=== PATIENT | male | born 1955 | race African-American/Black ===

== ENCOUNTER 2017-03-25 09:14 | Inpatient (IN) | payer OTHER ==
[2017-03-25 10:45] VITALS: BMI 25.7
--- NOTE | 2017-03-25 13:27 | HP ---
CIWA Score - CIWA Score Nausea/Vomitin Muscle Tremors: 4-Moderate,w/Arms Extend Anxiety: 3 Agitation: 4-Moderately Restless Paroxysmal Sweats: 3 Orientation: 0-Oriented Tacttile Disturbances: 0-None Auditory Disturbances: 0-None Visual Disturbances: 0-None Headache: 2-Mild CIWA-Ar Total Score: 18 Admission ROS BHS - HPI Chief Complaint: I am here to detox Allergies/Adverse Reactions: Allergies Allergy/AdvReac Type Severity Reaction Status Date / Time lactose Allergy Severe Verified 03/25/17 11:55 History of Present Illness: pt is a 61yr old male with a history of alcohol and cocaine dependence seeking detox for treatment. Exam Limitations: No Limitations - Ebola screening Have you traveled outside of the country in the last 21 days: No Have you had contact with anyone from an Ebola affected area: No Have you been sick,other than usual withdrawal symptoms: No Do you have a fever: No - Review of Systems Constitutional: Chills, Diaphoresis, Loss of Appetite, Malaise, Night Sweats, Changes in sleep EENT: reports: Tearing, Nose Congestion Respiratory: reports: No Symptoms reported Cardiac: reports: Syncope GI: reports: Diarrhea, Nausea, Poor Appetite, Poor Fluid Intake, Vomiting : reports: No Symptoms Reported Musculoskeletal: reports: Back Pain, Joint Pain, Muscle Pain Integumentary: reports: Flushing, Sweating Neuro: reports: Headache, Tingling, Tremors Endocrine: reports: Excessive Sweating, Flushing, Intolerance to Heat Hematology: reports: No Symptoms Reported Psychiatric: reports: Judgement Intact, Mood/Affect Appropiate, Orientated x3, Agitated, Anxious Other Systems: Reviewed and Negative Patient History - Patient Medical History Hx Anemia: Yes (NOT CURRENTLY ON MED) Hx Asthma: No Hx Chronic Obstructive Pulmonary Disease (COPD): No Hx Cancer: No Hx Cardiac Disorders: No Hx Congestive Heart Failure: No Hx Hypertension: No Hx Hypercholesterolemia: No Hx Pacemaker: No HX Cerebrovascular Accident: No Hx Seizures: No Hx Diabetes: No Hx Gastrointestinal Disorders: No Hx Liver Disease: No Hx Genitourinary Disorders: Yes (Pt states he has a R kidney cyst.) Hx Sexually Transmitted Disorders: No Hx Renal Disease (ESRD): No Hx Thyroid Disease: No Hx Human Immunodeficiency Virus (HIV): No (NEGATIVE HX) Hx Hepatitis C: No (negative) Hx Depression: Yes Hx Suicide Attempt: No (denies) Hx Bipolar Disorder: Yes Hx Schizophrenia: No - Patient Surgical History Past Surgical History: Yes Hx Neurologic Surgery: No Hx Cataract Extraction: No Hx Cardiac Surgery: No Hx Lung Surgery: Yes (CHEST TUBES DUE TO RIB FX/COLLAPSED LUNG IN 2010) Hx Breast Surgery: No Hx Breast Biopsy: No Hx Abdominal Surgery: No Hx Appendectomy: No Hx Cholecystectomy: No Hx Genitourinary Surgery: No Hx Section: No Hx Orthopedic Surgery: No Anesthesia Reaction: No - PPD History Previous Implant?: Yes Documented Results: Negative w/proof Implanted On Prior [facility] Admission?: Yes Date: 07/01/16 Results: 0 mm PPD to be Administered?: No - Reproductive History Patient is a Female of Child Bearing Age (11 -55 yrs old): No - Smoking Cessation Smoking history: Current every day smoker Have you smoked in the past 12 months: Yes Aproximately how many cigarettes per day: 10 Hx Chewing Tobacco Use: No Initiated information on smoking cessation: Yes 'Breaking Loose' booklet given: 03/25/17 - Substance & Tx. History Hx Alcohol Use: Yes Hx Substance Use: Yes Substance Use Type: Alcohol, Cocaine, Marijuana Hx Substance Use Treatment: Yes - Substances Abused Alcohol Route: Oral Frequency: Daily Amount used: 6PK BEER/ 1 PINT VODKA Age of first use: 17 Date of Last Use: 03/25/17 Cocaine Route: Inhalation Frequency: 1-2 times per week Amount used: $20 Age of first use: 18 Date of Last Use: 03/24/17 Marijuana/Hashish Route: Smoking Frequency: 3-6 times per week Amount used: $5 Age of first use: 17 Date of Last Use: 03/24/17 Family Disease History - Family Disease History Family Disease History: Heart Disease: Brother ([place] & ADDICTION-), [place]: Father (PROSTATE [place]-), Other: Grandparent (BLIND-), Mother (HTN- ALIVE AND 96 Y/O) Admission Physical Exam S - Vital Signs Vital Signs: Vital Signs - 24 hr 03/25/17 10:43 Temperature 97 F L Pulse Rate 97 H Respiratory 20 Rate Blood Pressure 133/77 - Physical General Appearance: Yes: Appropriately Dressed, Moderate Distress, Tremorous, Irritable, Sweating, Anxious HEENTM: Yes: Normal Voice, Nasal Congestion, Rhinorrhea Respiratory: Yes: Lungs Clear, Normal Breath Sounds, No Respiratory Distress Neck: Yes: No masses,lesions,Nodules Breast: Yes: Within Normal Limits Cardiology: Yes: Regular Rhythm, Regular Rate, S1, S2 Abdominal: Yes: Normal Bowel Sounds, Non Tender, Soft Genitourinary: Yes: Within Normal Limits Back: Yes: Normal Inspection Musculoskeletal: Yes: Back pain, Joint Stiffness Extremities: Yes: Normal Capillary Refill, Tremors Neurological: Yes: Fully Oriented, Alert, Normal Mood/Affect, Normal Response Integumentary: Yes: Normal Color, Diaphoresis Lymphatic: Yes: Within Normal Limits - Diagnostic (1) Alcohol dependence with uncomplicated withdrawal Current Visit: Yes Status: Chronic (2) Cannabis dependence Current Visit: Yes Status: Chronic (3) History of anemia Current Visit: Yes Status: Suspected Cleared for Admission [facility] - Detox or Rehab [facility] Level of Care: Medically Managed Detox Regimen/Protocol: Librium [facility] Breath Alcohol Content Breath Alcohol Content: 0.008 Urine Drug Screen - Results Drug Screen Negative: No Urine Drug Screen Results: THC-Marijuana, PRICILLA-Cocaine
[2017-03-25] MEDS ORDERED: hydrOXYzine PAMOATE 50 MG CAPSULE (FP) PO PRN (13:35)
[2017-03-25] MEDS ORDERED: MAGNESIUM CITRATE 300 ML BOTTLE PO PRN (13:35)
[2017-03-25] MEDS ORDERED: diphenhydrAMINE HCL 50 MG CAPSULE PO PRN (13:35)
[2017-03-25] MEDS ORDERED: MAG HYDROX/AL HYDROX/SIMETH 30 ML UNIT-DOSE CUP PO PRN (13:35)
[2017-03-25] MEDS ORDERED: P-EPHED 60MG/TRIPROLIDI 2.5MG TABLET PO PRN (13:35)
[2017-03-25] MEDS ORDERED: chlordiazePOXIDE HCL 25 MG CAPSULE PO PRN (13:35)
[2017-03-25] MEDS ORDERED: MAGNESIUM HYDROX 2400MG/30ML ORAL SUSPENSION 30 ML CUP PO PRN (13:35)
[2017-03-25] MEDS ORDERED: IBUPROFEN 400 MG TABLET (FP) PO PRN (13:35)
[2017-03-25] MEDS ORDERED: MENTHOL/PHENOL 1 EACH UD MM PRN (13:35)
[2017-03-25] MEDS ORDERED: LOPERAMIDE HCL 2 MG CAPSULE PO PRN (13:35)
[2017-03-25] MEDS ORDERED: ACETAMINOPHEN 325 MG TABLET (FP) PO PRN (13:35)
[2017-03-25] MEDS ORDERED: guaiFENesin/D-METHORPHAN HB 10 ML UNIT-DOSE CUPS PO PRN (13:35)
[2017-03-25] MEDS ORDERED: chlordiazePOXIDE HCL 25 MG CAPSULE PO ONE (13:51)
[2017-03-25 15:18] LABS: HIV 1 & 2 AB NEGATIVE; HIV 1 AGp24 NEGATIVE
--- NOTE | 2017-03-25 15:22 | CONSULT ---
[facility] Psychiatric Consult - Data Date of interview: 03/25/17 Admission source: [facility] Identifying data: Schizophrenia, history of psuychiatrtic hospitalizations intoxicated with: This is 61 years old male with : Alcohol, Cannabis, Cocaine and Nicotine Substance Abuse History: Smoking history: Current every day smoker. Have you smoked in the past 12 months: Yes. Aproximately how many cigarettes per day: 10. Hx Chewing Tobacco Use: No. Initiated information on smoking cessation: Yes. 'Breaking Loose' booklet given: 03/25/17. - Substance & Tx. History. Hx Alcohol Use: Yes. Hx Substance Use: Yes. Substance Use Type: Alcohol, Cocaine , Marijuana. Hx Substance Use Treatment: Yes. - Substances Abused. Alcohol. Route: Oral. Frequency: Daily. Amount used: 6PK BEER/ 1 PINT VODKA. Age of first use: 17. Date of Last Use: 03/25/17. Cocaine. Route: Inhalation. Frequency: 1-2 times per week. Amount used: $20. Age of first use : 18. Date of Last Use: 03/24/17. Marijuana/Hashish. Route: Smoking. Frequency: 3-6 times per week. Amount used: $5. Age of first use: 17. Date of Last Use: 03/24/17 Medical History: Anemia history, Right forearm fracture history, GERD Psychiatric History: Ashley reports history of Paranoid Schizophrenia, reports most recent psychitric admission on long time ago, reports taking prior to admission:'. Abilify 15mg poqd. Vistaril 50mg po bid. Robaxin 500mg po tid Physical/Sexual Abuse/Trauma History: Denies Additional Comment: Abilify 15mg poqd. Vistaril 50mg po bid. Robaxin 500mg po tid Mental Status Exam - Mental Status Exam Alert and Oriented to: Person Cognitive Function: Fair Patient Appearance: Unkempt, Disheveled Mood: Anxious Affect: Flat Patient Behavior: Fatigued, Guarded Speech Pattern: Slurred Voice Loudness: Mildly Soft/Quiet Thought Process: Circumstantial Thought Disorder: Being Controlled Hallucinations: Denies Suicidal Ideation: Denies Homicidal Ideation: Denies Insight/Judgement: Fair Sleep: Difficulty falling asleep Appetite: Fair Muscle strength/Tone: Mild Hypotonicity Gait/Station: Shuffling Additional Comments: Abilify 15mg poqd. Vistaril 50mg po bid. Robaxin 500mg po tid Psychiatric Findings - Problem List ([place] 1, 2,3) (1) Alcohol dependence with uncomplicated withdrawal Current Visit: Yes Status: Chronic (2) Cannabis dependence Current Visit: Yes Status: Chronic (3) Substance induced mood disorder Current Visit: No Status: Acute (4) Substance or medication-induced sleep disorder, insomnia type Current Visit: No Status: Acute (5) Schizophrenia Current Visit: No Status: Suspected (6) Cocaine abuse Current Visit: Yes Status: Acute (7) Nicotine dependence Current Visit: Yes Status: Acute - Initial Treatment Plan Initial Treatment Plan: Abilify 15mg poqd. Vistaril 50mg po bid. Robaxin 500mg po tid
[2017-03-25] MEDS: ARIPiprazole 15 MG TABLET PO SCH (15:37)
[2017-03-25] MEDS: METHOCARBAMOL 500 MG TABLET PO SCH ×2 (15:37→22:27)
--- NOTE | 2017-03-25 16:47 | EKG ---
Test Reason : Blood Pressure : / mmHG Vent. Rate : 073 BPM Atrial Rate : 073 BPM P-R Int : 124 ms QRS Dur : 066 ms QT Int : 366 ms P-R-T Axes : 080 072 036 degrees QTc Int : 403 ms NORMAL SINUS RHYTHM NORMAL ECG NO PREVIOUS ECGS AVAILABLE Confirmed by MARI COTTRELL MD ([id number]) on 03/25/2017 4:46:54 PM Referred By: Confirmed By:MARI COTTRELL MD
[2017-03-25] MEDS: chlordiazePOXIDE HCL 25 MG CAPSULE PO SCH ×2 (17:09→22:27)
[2017-03-25 17:45] LABS: URINE APPEARANCE CLEAR; URINE BILIRUBIN NEGATIVE (NEGATIVE); URINE BLOOD NEGATIVE (NEGATIVE); URINE COLOR LTYELLOW; URINE GLUCOSE (UA) NEGATIVE (NEGATIVE); URINE KETONE NEGATIVE (NEGATIVE); URINE LEUK ESTERASE NEGATIVE (NEGATIVE); URINE NITRITE NEGATIVE (NEGATIVE); URINE PROTEIN NEGATIVE (NEGATIVE); URINE UROBILINOGEN NEGATIVE E.U./dl (0.2-1.0)
[2017-03-25] MEDS: hydrOXYzine PAMOATE 50 MG CAPSULE (FP) PO SCH (22:27)
[2017-03-25] MEDS: THIAMINE HCL 100 MG TABLET (FP) PO SCH (22:27)
[2017-03-26] MEDS: chlordiazePOXIDE HCL 25 MG CAPSULE PO SCH ×4 (06:10→22:26)
[2017-03-26] MEDS: METHOCARBAMOL 500 MG TABLET PO SCH ×4 (07:43→22:26)
[2017-03-26 10:00] LABS: MCH 29.9 pg (25.7-33.7); MCHC 31.6 g/dl (32.0-35.9); MEAN CELL VOLUME 94.4 fl (80-96); PLATELET COUNT 134 K/MM3 (134-434); WHITE BLOOD COUNT 6.7 K/mm3 (4.0-10.0)
[2017-03-26] MEDS: PRENATAL VITAMINS W/ FOLIC ACID TABLET (FP) PO SCH (10:15)
[2017-03-26] MEDS: ARIPiprazole 15 MG TABLET PO SCH (10:15)
[2017-03-26] MEDS: NICOTINE 21 MG/24 HOURS TOPICAL PATCH TD SCH (10:15)
[2017-03-26] MEDS: hydrOXYzine PAMOATE 50 MG CAPSULE (FP) PO SCH ×2 (10:15→22:26)
[2017-03-26] MEDS: NICOTINE POLACRILEX 4 MG GUM BUC PRN (10:16)
[2017-03-26 10:35] LABS: ALBUMIN 3.8 g/dl (3.4-5.0); ALK PHOS 87 U/L (45-117); ANION GAP 8 (8-16); BILIRUBIN,TOTAL 0.6 mg/dL (0.2-1.0); CALCIUM 8.3 mg/dL (8.5-10.1); CO2 26 mmol/L (21-32); COCKROFT - GAULT 85.04; CREATININE 0.9 mg/dL (0.7-1.3); GLUCOSE,RANDOM 95 mg/dL (74-106); SGOT/AST 38 U/L (15-37); SGPT/ALT 44 U/L (12-78); TOT PROT 6.6 g/dl (6.4-8.2)
--- NOTE | 2017-03-26 13:18 | PN ---
S CIWA - CIWA Score Nausea/Vomitin Muscle Tremors: 3 Anxiety: 2 Agitation: 2 Paroxysmal Sweats: 3 Orientation: 1-Uncertain about Date Tacttile Disturbances: 2-Mild Itch/Numbness/Burn Auditory Disturbances: 2-Mild Harshness/Frighten Visual Disturbances: 2-Mild Sensitivity Headache: 0-None Present CIWA-Ar Total Score: 20 S Progress Note (SOAP) Subjective: Nausea, Body Aches, Interrupted Sleep,Fatigue, Tremors. Objective: PT. A & O X 2 (DISORIENTED ABOUT DAY/ DATE). PT. DENIES CHEST PAIN. 03/26/17 13:19 Vital Signs Temperature 98.1 F 03/26/17 10:06 Pulse Rate 86 03/26/17 10:06 Respiratory Rate 20 03/26/17 10:06 Blood Pressure 108/70 03/26/17 10:06 O2 Sat by Pulse Oximetry (%) Laboratory Last Values WBC 6.7 K/mm3 (4.0-10.0) D 03/26/17 06:00 RBC 4.32 M/mm3 (4.00-5.60) 03/26/17 06:00 Hgb 12.9 GM/dL (11.7-16.9) 03/26/17 06:00 Hct 40.8 % (35.4-49) 03/26/17 06:00 MCV 94.4 fl (80-96) 03/26/17 06:00 MCHC 31.6 g/dl (32.0-35.9) L 03/26/17 06:00 RDW 14.0 % (11.9-15.9) 03/26/17 06:00 Plt Count 134 K/MM3 (134-434) 03/26/17 06:00 MPV 9.0 fl (7.5-11.1) 03/26/17 06:00 Sodium 144 mmol/L (136-145) 03/26/17 06:00 Potassium 4.1 mmol/L (3.5-5.1) 03/26/17 06:00 Chloride 110 mmol/L (98-107) H D 03/26/17 06:00 Carbon Dioxide 26 mmol/L (21-32) 03/26/17 06:00 Anion Gap 8 (8-16) 03/26/17 06:00 BUN 6 mg/dL (7-18) L 03/26/17 06:00 Creatinine 0.9 mg/dL (0.7-1.3) 03/26/17 06:00 Creat Clearance w eGFR > 60 (>60) 03/26/17 06:00 Random Glucose 95 mg/dL (74-106) D 03/26/17 06:00 Calcium 8.3 mg/dL (8.5-10.1) L 03/26/17 06:00 Total Bilirubin 0.6 mg/dL (0.2-1.0) D 03/26/17 06:00 AST 38 U/L (15-37) H D 03/26/17 06:00 ALT 44 U/L (12-78) D 03/26/17 06:00 Alkaline Phosphatase 87 U/L (45-117) 03/26/17 06:00 Total Protein 6.6 g/dl (6.4-8.2) 03/26/17 06:00 Albumin 3.8 g/dl (3.4-5.0) 03/26/17 06:00 Urine Color Ltyellow 03/25/17 13:00 Urine Appearance Clear 03/25/17 13:00 Urine pH 5.0 (5.0-8.0) 03/25/17 13:00 Ur Specific [place] 1.015 (1.005-1.025) 03/25/17 13:00 Urine Protein Negative (NEGATIVE) 03/25/17 13:00 Urine Glucose (UA) Negative (NEGATIVE) 03/25/17 13:00 Urine Ketones Negative (NEGATIVE) 03/25/17 13:00 Urine Blood Negative (NEGATIVE) 03/25/17 13:00 Urine Nitrite Negative (NEGATIVE) 03/25/17 13:00 Urine Bilirubin Negative (NEGATIVE) 03/25/17 13:00 Urine Urobilinogen Negative E.U./dl (0.2-1.0) 03/25/17 13:00 Ur Leukocyte Esterase Negative (NEGATIVE) 03/25/17 13:00 RPR Titer Nonreactive (NONREACTIVE) 03/26/17 06:00 HIV 1&2 Antibody Screen Negative 03/25/17 12:05 HIV P24 Antigen Negative 03/25/17 12:05 LABS NOTED. Assessment: 03/26/17 13:20 WITHDRAWAL SYMPTOMS. Plan: CONTINUE DETOX. PATIENT ADVISED TO FOLLOW-UP WITH CATERING SERVICE MANAGER AFTER DISCHARGE FROM DETOX FOR GENERAL MEDICAL ASSESSMENT AND FOR ABNORMAL ADMISSION LAB VALUES.
[2017-03-26] MEDS: THIAMINE HCL 100 MG TABLET (FP) PO SCH (22:26)
[2017-03-27] MEDS: chlordiazePOXIDE HCL 25 MG CAPSULE PO SCH ×2 (05:24→10:26)
[2017-03-27] MEDS: ARIPiprazole 15 MG TABLET PO SCH (10:26)
[2017-03-27] MEDS: METHOCARBAMOL 500 MG TABLET PO SCH ×3 (10:27→22:07)
[2017-03-27] MEDS: PRENATAL VITAMINS W/ FOLIC ACID TABLET (FP) PO SCH (10:27)
[2017-03-27] MEDS: hydrOXYzine PAMOATE 50 MG CAPSULE (FP) PO SCH ×2 (10:27→22:07)
[2017-03-27] MEDS: NICOTINE 21 MG/24 HOURS TOPICAL PATCH TD SCH (10:28)
--- NOTE | 2017-03-27 15:04 | PN ---
[facility] CIWA - CIWA Score Nausea/Vomitin-Mild Nausea/No Vomiting Muscle Tremors: 4-Moderate,w/Arms Extend Anxiety: 3 Agitation: 2 Paroxysmal Sweats: 1-Minimal Palms Moist Orientation: 1-Uncertain about Date Tacttile Disturbances: 0-None Auditory Disturbances: 0-None Visual Disturbances: 3-Moderate Sensitivity Headache: 0-None Present CIWA-Ar Total Score: 15 [facility] Progress Note (SOAP) Subjective: Back Ache, Diarrhea, Tremors. Objective: PT. A & O X 2 (DISORIENTED ABOUT DAY/DATE). PT. OBSERVED AMBULATING ON UNIT. 03/27/17 15:03 Vital Signs Temperature 96.9 F L 03/27/17 13:07 Pulse Rate 80 03/27/17 13:07 Respiratory Rate 20 03/27/17 13:07 Blood Pressure 128/84 03/27/17 13:07 O2 Sat by Pulse Oximetry (%) Laboratory Last Values WBC 6.7 K/mm3 (4.0-10.0) D 03/26/17 06:00 RBC 4.32 M/mm3 (4.00-5.60) 03/26/17 06:00 Hgb 12.9 GM/dL (11.7-16.9) 03/26/17 06:00 Hct 40.8 % (35.4-49) 03/26/17 06:00 MCV 94.4 fl (80-96) 03/26/17 06:00 MCHC 31.6 g/dl (32.0-35.9) L 03/26/17 06:00 RDW 14.0 % (11.9-15.9) 03/26/17 06:00 Plt Count 134 K/MM3 (134-434) 03/26/17 06:00 MPV 9.0 fl (7.5-11.1) 03/26/17 06:00 Sodium 144 mmol/L (136-145) 03/26/17 06:00 Potassium 4.1 mmol/L (3.5-5.1) 03/26/17 06:00 Chloride 110 mmol/L (98-107) H D 03/26/17 06:00 Carbon Dioxide 26 mmol/L (21-32) 03/26/17 06:00 Anion Gap 8 (8-16) 03/26/17 06:00 BUN 6 mg/dL (7-18) L 03/26/17 06:00 Creatinine 0.9 mg/dL (0.7-1.3) 03/26/17 06:00 Creat Clearance w eGFR > 60 (>60) 03/26/17 06:00 Random Glucose 95 mg/dL (74-106) D 03/26/17 06:00 Calcium 8.3 mg/dL (8.5-10.1) L 03/26/17 06:00 Total Bilirubin 0.6 mg/dL (0.2-1.0) D 03/26/17 06:00 AST 38 U/L (15-37) H D 03/26/17 06:00 ALT 44 U/L (12-78) D 03/26/17 06:00 Alkaline Phosphatase 87 U/L (45-117) 03/26/17 06:00 Total Protein 6.6 g/dl (6.4-8.2) 03/26/17 06:00 Albumin 3.8 g/dl (3.4-5.0) 03/26/17 06:00 Urine Color Ltyellow 03/25/17 13:00 Urine Appearance Clear 03/25/17 13:00 Urine pH 5.0 (5.0-8.0) 03/25/17 13:00 Ur Specific [place] 1.015 (1.005-1.025) 03/25/17 13:00 Urine Protein Negative (NEGATIVE) 03/25/17 13:00 Urine Glucose (UA) Negative (NEGATIVE) 03/25/17 13:00 Urine Ketones Negative (NEGATIVE) 03/25/17 13:00 Urine Blood Negative (NEGATIVE) 03/25/17 13:00 Urine Nitrite Negative (NEGATIVE) 03/25/17 13:00 Urine Bilirubin Negative (NEGATIVE) 03/25/17 13:00 Urine Urobilinogen Negative E.U./dl (0.2-1.0) 03/25/17 13:00 Ur Leukocyte Esterase Negative (NEGATIVE) 03/25/17 13:00 RPR Titer Nonreactive (NONREACTIVE) 03/26/17 06:00 HIV 1&2 Antibody Screen Negative 03/25/17 12:05 HIV P24 Antigen Negative 03/25/17 12:05 LABS NOTED. Assessment: 03/27/17 15:04 WITHDRAWAL SYMPTOMS. Plan: CONTINUE DETOX. PRN IMMODIUM FOR DIARRHEA. ADVISED PATIENT TO FOLLOW-UP WITH STAB SETTER AND DRILLER AFTER DISCHARGE FROM DETOX FOR GENERAL MEDICAL ASSESSMENT AND FOR ABNORMAL ADMISSION LAB VALUES.
[2017-03-27] MEDS: chlordiazePOXIDE 5 MG CAPSULE PO SCH ×2 (17:13→22:07)
[2017-03-27] MEDS: THIAMINE HCL 100 MG TABLET (FP) PO SCH (22:07)
[2017-03-27] MEDS: NICOTINE POLACRILEX 4 MG GUM BUC PRN (22:09)
[2017-03-28] MEDS: chlordiazePOXIDE 5 MG CAPSULE PO SCH ×2 (06:39→10:11)
[2017-03-28] MEDS: METHOCARBAMOL 500 MG TABLET PO SCH ×3 (07:14→22:15)
[2017-03-28] MEDS: PRENATAL VITAMINS W/ FOLIC ACID TABLET (FP) PO SCH (10:11)
[2017-03-28] MEDS: hydrOXYzine PAMOATE 50 MG CAPSULE (FP) PO SCH ×2 (10:11→22:15)
[2017-03-28] MEDS: ARIPiprazole 15 MG TABLET PO SCH (10:11)
[2017-03-28] MEDS: NICOTINE 21 MG/24 HOURS TOPICAL PATCH TD SCH (10:12)
--- NOTE | 2017-03-28 16:39 | PN ---
S Progress Note (SOAP) Subjective: Tremors, Diarrhea, Fatigue, Back Ache. Objective: PT. A & O X 2 (DISORIENTED ABOUT DAY / DATE). PT. OBSERVED AMBULATING ON UNIT. 03/28/17 16:37 Vital Signs Temperature 96.5 F L 03/28/17 13:19 Pulse Rate 84 03/28/17 13:19 Respiratory Rate 20 03/28/17 13:19 Blood Pressure 131/88 03/28/17 13:19 O2 Sat by Pulse Oximetry (%) Laboratory Last Values WBC 6.7 K/mm3 (4.0-10.0) D 03/26/17 06:00 RBC 4.32 M/mm3 (4.00-5.60) 03/26/17 06:00 Hgb 12.9 GM/dL (11.7-16.9) 03/26/17 06:00 Hct 40.8 % (35.4-49) 03/26/17 06:00 MCV 94.4 fl (80-96) 03/26/17 06:00 MCHC 31.6 g/dl (32.0-35.9) L 03/26/17 06:00 RDW 14.0 % (11.9-15.9) 03/26/17 06:00 Plt Count 134 K/MM3 (134-434) 03/26/17 06:00 MPV 9.0 fl (7.5-11.1) 03/26/17 06:00 Sodium 144 mmol/L (136-145) 03/26/17 06:00 Potassium 4.1 mmol/L (3.5-5.1) 03/26/17 06:00 Chloride 110 mmol/L (98-107) H D 03/26/17 06:00 Carbon Dioxide 26 mmol/L (21-32) 03/26/17 06:00 Anion Gap 8 (8-16) 03/26/17 06:00 BUN 6 mg/dL (7-18) L 03/26/17 06:00 Creatinine 0.9 mg/dL (0.7-1.3) 03/26/17 06:00 Creat Clearance w eGFR > 60 (>60) 03/26/17 06:00 Random Glucose 95 mg/dL (74-106) D 03/26/17 06:00 Calcium 8.3 mg/dL (8.5-10.1) L 03/26/17 06:00 Total Bilirubin 0.6 mg/dL (0.2-1.0) D 03/26/17 06:00 AST 38 U/L (15-37) H D 03/26/17 06:00 ALT 44 U/L (12-78) D 03/26/17 06:00 Alkaline Phosphatase 87 U/L (45-117) 03/26/17 06:00 Total Protein 6.6 g/dl (6.4-8.2) 03/26/17 06:00 Albumin 3.8 g/dl (3.4-5.0) 03/26/17 06:00 Urine Color Ltyellow 03/25/17 13:00 Urine Appearance Clear 03/25/17 13:00 Urine pH 5.0 (5.0-8.0) 03/25/17 13:00 Ur Specific [place] 1.015 (1.005-1.025) 03/25/17 13:00 Urine Protein Negative (NEGATIVE) 03/25/17 13:00 Urine Glucose (UA) Negative (NEGATIVE) 03/25/17 13:00 Urine Ketones Negative (NEGATIVE) 03/25/17 13:00 Urine Blood Negative (NEGATIVE) 03/25/17 13:00 Urine Nitrite Negative (NEGATIVE) 03/25/17 13:00 Urine Bilirubin Negative (NEGATIVE) 03/25/17 13:00 Urine Urobilinogen Negative E.U./dl (0.2-1.0) 03/25/17 13:00 Ur Leukocyte Esterase Negative (NEGATIVE) 03/25/17 13:00 RPR Titer Nonreactive (NONREACTIVE) 03/26/17 06:00 HIV 1&2 Antibody Screen Negative 03/25/17 12:05 HIV P24 Antigen Negative 03/25/17 12:05 LABS NOTED. Assessment: 03/28/17 16:39 WITHDRAWAL SYMPTOMS. Plan: CONTINUE DETOX. ADVISED PATIENT TO FOLLOW-UP WITH BUNDLE BREAKER AFTER DISCHARGE FROM DETOX FOR GENERAL MEDICAL ASSESSMENT AND FOR ABNORMAL ADMISSION LAB VALUES.
[2017-03-28] MEDS: chlordiazePOXIDE HCL 10 MG CAPSULE PO SCH ×2 (17:00→22:15)
[2017-03-28] MEDS: THIAMINE HCL 100 MG TABLET (FP) PO SCH (22:15)
[2017-03-29] MEDS: METHOCARBAMOL 500 MG TABLET PO SCH (06:04)
[2017-03-29] MEDS: chlordiazePOXIDE HCL 10 MG CAPSULE PO SCH (06:04)
[2017-03-29 09:26] VITALS: BP 119/80; PULSE 94; TEMP 97.8
--- NOTE | 2017-03-29 09:33 | DS ---
[facility] Detox Discharge Summary Admission Date: 03/25/17 Discharge Date: 03/29/17 - History Present History: Alcohol Dependence, Cannabis Dependence, Cocaine Dependence Pertinent Past History: GERD Onychromycosis - Physical Exam Results Vital Signs: Vital Signs Temperature 97.8 F 03/29/17 09:25 Pulse Rate 94 H 03/29/17 09:25 Respiratory Rate 20 03/29/17 09:25 Blood Pressure 119/80 03/29/17 09:25 O2 Sat by Pulse Oximetry (%) Pertinent Admission Physical Exam Findings: Withdrawal sx. Laboratory Last Values WBC 6.7 K/mm3 (4.0-10.0) D 03/26/17 06:00 RBC 4.32 M/mm3 (4.00-5.60) 03/26/17 06:00 Hgb 12.9 GM/dL (11.7-16.9) 03/26/17 06:00 Hct 40.8 % (35.4-49) 03/26/17 06:00 MCV 94.4 fl (80-96) 03/26/17 06:00 MCHC 31.6 g/dl (32.0-35.9) L 03/26/17 06:00 RDW 14.0 % (11.9-15.9) 03/26/17 06:00 Plt Count 134 K/MM3 (134-434) 03/26/17 06:00 MPV 9.0 fl (7.5-11.1) 03/26/17 06:00 Sodium 144 mmol/L (136-145) 03/26/17 06:00 Potassium 4.1 mmol/L (3.5-5.1) 03/26/17 06:00 Chloride 110 mmol/L (98-107) H D 03/26/17 06:00 Carbon Dioxide 26 mmol/L (21-32) 03/26/17 06:00 Anion Gap 8 (8-16) 03/26/17 06:00 BUN 6 mg/dL (7-18) L 03/26/17 06:00 Creatinine 0.9 mg/dL (0.7-1.3) 03/26/17 06:00 Creat Clearance w eGFR > 60 (>60) 03/26/17 06:00 Random Glucose 95 mg/dL (74-106) D 03/26/17 06:00 Calcium 8.3 mg/dL (8.5-10.1) L 03/26/17 06:00 Total Bilirubin 0.6 mg/dL (0.2-1.0) D 03/26/17 06:00 AST 38 U/L (15-37) H D 03/26/17 06:00 ALT 44 U/L (12-78) D 03/26/17 06:00 Alkaline Phosphatase 87 U/L (45-117) 03/26/17 06:00 Total Protein 6.6 g/dl (6.4-8.2) 03/26/17 06:00 Albumin 3.8 g/dl (3.4-5.0) 03/26/17 06:00 Urine Color Ltyellow 03/25/17 13:00 Urine Appearance Clear 03/25/17 13:00 Urine pH 5.0 (5.0-8.0) 03/25/17 13:00 Ur Specific [place] 1.015 (1.005-1.025) 03/25/17 13:00 Urine Protein Negative (NEGATIVE) 03/25/17 13:00 Urine Glucose (UA) Negative (NEGATIVE) 03/25/17 13:00 Urine Ketones Negative (NEGATIVE) 03/25/17 13:00 Urine Blood Negative (NEGATIVE) 03/25/17 13:00 Urine Nitrite Negative (NEGATIVE) 03/25/17 13:00 Urine Bilirubin Negative (NEGATIVE) 03/25/17 13:00 Urine Urobilinogen Negative E.U./dl (0.2-1.0) 03/25/17 13:00 Ur Leukocyte Esterase Negative (NEGATIVE) 03/25/17 13:00 RPR Titer Nonreactive (NONREACTIVE) 03/26/17 06:00 HIV 1&2 Antibody Screen Negative 03/25/17 12:05 HIV P24 Antigen Negative 03/25/17 12:05 labs noted - Treatment Hospital Course: Detox Protocol Followed, Detoxed Safely, Responded well, Discharged Condition Good, Rehab Referral Accepted Patient has Accepted a Rehab Referral to: [facility] - Medication Discharge Medications: Ambulatory Orders Aripiprazole [Abilify -] 15 mg PO DAILY 03/25/17 Aripiprazole [Abilify -] 15 mg PO DAILY #30 tablet 03/25/17 Hydroxyzine Pamoate [Vistaril -] 50 mg PO BID 03/25/17 Hydroxyzine Pamoate [Vistaril -] 50 mg PO BID #60 cap 03/25/17 Methocarbamol [Robaxin -] 500 mg PO TID 03/25/17 Methocarbamol [Robaxin -] 500 mg PO TID #90 tablet 03/25/17 - Diagnosis (1) Nicotine dependence Current Visit: Yes Status: Acute Qualifiers: Nicotine product type: cigarettes Substance use status: uncomplicated Qualified Code(s): F17.210 - Nicotine dependence, cigarettes, uncomplicated (2) Alcohol dependence with uncomplicated withdrawal Current Visit: Yes Status: Chronic (3) Cannabis dependence Current Visit: Yes Status: Chronic (4) Substance induced mood disorder Current Visit: No Status: Acute (5) Substance or medication-induced sleep disorder, insomnia type Current Visit: No Status: Acute (6) GERD (gastroesophageal reflux disease) Current Visit: No Status: Chronic Qualifiers: Esophagitis presence: without esophagitis Qualified Code(s): K21.9 - Gastro-esophageal reflux disease without esophagitis (7) Onychomycosis Current Visit: No Status: Chronic (8) Schizophrenia Current Visit: No Status: Suspected - AMA Did Patient Leave Against Medical Advice: No
[2017-03-29] MEDS: ARIPiprazole 15 MG TABLET PO SCH (10:20)
[2017-03-29] MEDS: hydrOXYzine PAMOATE 50 MG CAPSULE (FP) PO SCH (10:21)
[2017-03-29] MEDS: NICOTINE 21 MG/24 HOURS TOPICAL PATCH TD SCH (10:21)
[2017-03-29] MEDS: PRENATAL VITAMINS W/ FOLIC ACID TABLET (FP) PO SCH (10:22)
== END 2017-03-29 10:56 | disposition home or self-care (01) | DRG 774 ==
LOC: YASAS 09:14 → Y3N 12:25
PROVIDERS: ADMIT Internal Medicine Addiction Medicine; ATTEND Internal Medicine Addiction Medicine
PROC: HZ2ZZZZ Detoxification Services for Substance Abuse Treatment (ICD-10-PCS; principal; 2017-03-29)
DX: F10.230 Alcohol dependence with withdrawal, uncomplicated (principal); F14.20 Cocaine dependence, uncomplicated; F12.20 Cannabis dependence, uncomplicated; F17.210 Nicotine dependence, cigarettes, uncomplicated; F19.24 Other psychoactive substance dependence with psychoactive substance-induced mood disorder; F19.282 Other psychoactive substance dependence with psychoactive substance-induced sleep disorder; G47.00 Insomnia, unspecified; F20.0 Paranoid schizophrenia; K21.9 Gastro-esophageal reflux disease without esophagitis; B35.1 Tinea unguium
CPT/HCPCS: 36415; 80053; 81003; 85027; 86593; 87389; 93005; 93010

== ENCOUNTER 2018-02-14 15:02 | Inpatient (IN) | payer OTHER ==
[2018-02-14 15:25] VITALS: BMI 27.3
--- NOTE | 2018-02-14 17:12 | HP ---
Admission ROS [facility] Chief Complaint: Patient presents for Rehab services for ETOH dependence. Completed detox at [facility] today and sent to [facility] for rehab services. Last drink was 4.5 days ago. States he drinks a 6 pack of beer daily and 1 pint of vodka. Also reports smoking crack/cocaine and last use was 5 days ago. Denies any history seizures due to withdrawal. Has history of Bipolar disorder and depression. Allergies/Adverse Reactions: Allergies Allergy/AdvReac Type Severity Reaction Status Date / Time lactose Allergy Severe Verified 03/25/17 11:55 History of Present Illness: Patient recently completed detox at [facility] today. Transferred today to [facility] for rehab services. Pt reports drinking 6 pack of beer and 1 pint of vodka daily. Last drink 5 days ago. Denies any Seizures due to withdrawal. Also reports using crack/cocaine and last use of substance 5 days ago. Has history of Bipolar disorder. Denies suicide ideation and attempts. Exam Limitations: No Limitations - Ebola screening Have you traveled outside of the country in the last 21 days: No Have you had contact with anyone from an Ebola affected area: No Have you been sick,other than usual withdrawal symptoms: No Do you have a fever: No - Review of Systems Constitutional: Night Sweats, Changes in sleep, Unintentional Wgt. Loss EENT: reports: No Symptoms Reported Respiratory: reports: No Symptoms reported Cardiac: reports: No Symptoms Reported GI: reports: Diarrhea, Nausea, Poor Appetite, Poor Fluid Intake : reports: No Symptoms Reported Musculoskeletal: reports: Back Pain, Muscle Pain Integumentary: reports: No Symptoms Reported, Flushing Neuro: reports: Tremors Endocrine: reports: Flushing, Unexplained Weight Loss Hematology: reports: No Symptoms Reported Psychiatric: reports: Anxious, Depressed, Disorientated (forgetful to month and date.) Patient History - Patient Medical History Hx Anemia: Yes (NOT CURRENTLY ON MED) Hx Asthma: No Hx Chronic Obstructive Pulmonary Disease (COPD): No Hx Cancer: No Hx Cardiac Disorders: No Hx Congestive Heart Failure: No Hx Hypertension: No Hx Hypercholesterolemia: No Hx Pacemaker: No HX Cerebrovascular Accident: No Hx Seizures: No Hx Diabetes: No Hx Gastrointestinal Disorders: No Hx Liver Disease: No Hx Genitourinary Disorders: Yes (Pt states he has a R kidney cyst.) Hx Sexually Transmitted Disorders: No Hx Renal Disease (ESRD): No Hx Thyroid Disease: No Hx Human Immunodeficiency Virus (HIV): No (NEGATIVE HX) Hx Hepatitis C: No (negative) Hx Depression: Yes Hx Suicide Attempt: No (denies suicide ideation and attempts) Hx Bipolar Disorder: Yes Hx Schizophrenia: No - Patient Surgical History Past Surgical History: Yes Hx Neurologic Surgery: No Hx Cataract Extraction: No Hx Cardiac Surgery: No Hx Lung Surgery: Yes (CHEST TUBES DUE TO RIB FX/COLLAPSED LUNG IN 2010) Hx Breast Surgery: No Hx Breast Biopsy: No Hx Abdominal Surgery: No Hx Appendectomy: No Hx Cholecystectomy: No Hx Genitourinary Surgery: No Hx Section: No Hx Orthopedic Surgery: No Anesthesia Reaction: No - PPD History Previous Implant?: Yes Documented Results: Negative w/o proof Implanted On Prior [facility] Admission?: No Date: 07/01/16 Results: 0 mm - Smoking Cessation Smoking history: Current every day smoker Have you smoked in the past 12 months: Yes Aproximately how many cigarettes per day: 10 Hx Chewing Tobacco Use: No Initiated information on smoking cessation: Yes 'Breaking Loose' booklet given: 02/14/18 - Substance & Tx. History Hx Alcohol Use: Yes Hx Substance Use: Yes Substance Use Type: Alcohol, Cocaine Hx Substance Use Treatment: Yes - Substances Abused Cocaine Route: Inhalation Frequency: 1-3 times last 30 days Alcohol Route: Oral Frequency: Daily Family Disease History - Family Disease History Family Disease History: Heart Disease: Brother ([place] & ADDICTION-), CA: Father (PROSTATE CA-), Other: Grandparent (BLIND-), Mother (HTN- ALIVE AND 98 Y/O) Admission Physical Exam S - Vital Signs Vital Signs: Vital Signs - 24 hr 02/14/18 15:23 Temperature 98.6 F Pulse Rate 80 Respiratory 18 Rate Blood Pressure 136/77 - Physical General Appearance: Yes: Disheveled, Anxious HEENTM: Yes: EOMI, Hearing grossly Normal, Normocephalic, DAVID, Pharynx Normal Respiratory: Yes: Within Normal Limits, Chest Non-Tender, Lungs Clear, Normal Breath Sounds, No Respiratory Distress Neck: Yes: Within Normal Limits, No masses,lesions,Nodules, Supple Breast: Yes: Breast Exam Deferred Cardiology: Yes: Within Normal Limits, Regular Rhythm, Regular Rate, S1, S2 Abdominal: Yes: Within Normal Limits, Normal Bowel Sounds, Non Tender, Soft Genitourinary: Yes: Within Normal Limits Back: Yes: Within Normal Limits Musculoskeletal: Yes: Gait Steady, Back pain Extremities: Yes: Normal Range of Motion, Tremors Neurological: Yes: education and outreach coordinator II-XII NML intact, Alert, Confused Integumentary: Yes: Warm, Moist (scalp moist), Other (Right parikh with old healed wound, +scar) - Diagnostic (1) Alcohol dependence Current Visit: Yes Status: Acute Qualifiers: Substance use status: unspecified alcohol-induced disorder Qualified Code(s ): F10.29 - Alcohol dependence with unspecified alcohol-induced disorder (2) Bipolar disorder Current Visit: Yes Status: Chronic Qualifiers: Active/Remission status: remission status unspecified Qualified Code(s): F31.9 - Bipolar disorder, unspecified (3) Cocaine abuse Current Visit: Yes Status: Acute (4) Nicotine dependence Current Visit: Yes Status: Acute Qualifiers: Nicotine product type: cigarettes Substance use status: uncomplicated Qualified Code(s): F17.210 - Nicotine dependence, cigarettes, uncomplicated (5) Substance or medication-induced sleep disorder, insomnia type Current Visit: Yes Status: Acute Cleared for Admission S - Detox or Rehab Claeared for Rehab Admission: Yes S Breath Alcohol Content Breath Alcohol Content: 0 Urine Drug Screen - Results Drug Screen Negative: No Urine Drug Screen Results: BZO-Benzodiazepines, TCA-Tricyclic Antidepress Inpatient Rehab Admission - Initial Determination Are CD services needed?: Yes Free of communicable disease: Yes Not in need of hospitalization: Yes - Rehab Admission Criteria Previous failed treatment: Yes Poor recovery environment: Yes Comorbidities: Yes Lacks judgement: Yes Patient is meeting Inpatient Rehab admission criteria:: Yes
[2018-02-14] MEDS ORDERED: guaiFENesin/D-METHORPHAN HB 10 ML UNIT-DOSE CUPS PO PRN (17:35)
[2018-02-14] MEDS ORDERED: MAGNESIUM CITRATE 300 ML BOTTLE PO PRN (17:35)
[2018-02-14] MEDS ORDERED: MAGNESIUM HYDROX 2400MG/30ML ORAL SUSPENSION 30 ML CUP PO PRN (17:35)
[2018-02-14] MEDS ORDERED: P-EPHED 60MG/TRIPROLIDI 2.5MG TABLET PO PRN (17:35)
[2018-02-14] MEDS ORDERED: LOPERAMIDE HCL 2 MG CAPSULE PO PRN (17:35)
[2018-02-14] MEDS ORDERED: NICOTINE POLACRILEX 2 MG GUM BC PRN (17:35)
[2018-02-14] MEDS ORDERED: MENTHOL/PHENOL 1 EACH UD MM PRN (17:35)
[2018-02-14] MEDS: THIAMINE HCL 100 MG TABLET (FP) PO SCH (22:04)
--- NOTE | 2018-02-14 22:35 | PN ---
[facility] Progress Note Note: was called by the nurse to place an orders for medication, patient brought bottles with medication refilled 02/11/18 ; [id number] mg po hs, abilify 20 mg po hs and benadryl 50 mg po hs, chart reviewed patient was at [facility] twice and was on the same meds.
[2018-02-14] MEDS: TOPIRAMATE 25 MG TABLET (FP) PO SCH (22:45)
[2018-02-14] MEDS: diphenhydrAMINE HCL 50 MG CAPSULE PO SCH (22:45)
[2018-02-14] MEDS: ARIPiprazole 10 MG TABLET PO SCH (22:45)
--- NOTE | 2018-02-15 10:14 | EKG ---
Test Reason : Blood Pressure : / mmHG Vent. Rate : 080 BPM Atrial Rate : 080 BPM P-R Int : 140 ms QRS Dur : 068 ms QT Int : 380 ms P-R-T Axes : 064 048 037 degrees QTc Int : 438 ms NORMAL SINUS RHYTHM WITH SINUS ARRHYTHMIA NORMAL ECG WHEN COMPARED WITH ECG OF 25-MAR-2017 13:10, NO SIGNIFICANT CHANGE WAS FOUND Confirmed by Anurag Gonzalez MD ([id number]) on 02/15/2018 10:14:16 AM Referred By: Confirmed By:Anurag Gonzalez MD
[2018-02-15] MEDS: PRENATAL VITAMINS W/ FOLIC ACID TABLET (FP) PO SCH (10:46)
[2018-02-15] MEDS: NICOTINE 21 MG/24 HOURS TOPICAL PATCH TD SCH (10:46)
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
[2018-02-15 15:04] LABS: HEMATOCRIT 46.6 % (35.4-49); HEMOGLOBIN 15.1 GM/dL (11.7-16.9); MCH 30.4 pg (25.7-33.7); MCHC 32.5 g/dl (32.0-35.9); MEAN CELL VOLUME 93.5 fl (80-96); MEAN PLT VOLUME 8.7 fl (7.5-11.1); PLATELET COUNT 213 K/MM3 (134-434); RBC 4.99 M/mm3 (4.00-5.60)
[2018-02-15 15:07] LABS: URINE APPEARANCE CLEAR; URINE BILIRUBIN NEGATIVE (<2.0 mg/dL); URINE COLOR YELLOW; URINE GLUCOSE (UA) NEGATIVE (NEGATIVE); URINE KETONE NEGATIVE (NEGATIVE); URINE LEUK ESTERASE NEGATIVE (NEGATIVE); URINE NITRITE NEGATIVE (NEGATIVE); URINE PROTEIN NEGATIVE (NEGATIVE); URINE UROBILINOGEN NEGATIVE mg/dL (0.2-1.0)
[2018-02-15 15:17] LABS: CHLORIDE 105 mmol/L (98-107); POTASSIUM 4.1 mmol/L (3.5-5.1); SODIUM 140 mmol/L (136-145)
[2018-02-15 15:53] LABS: ALBUMIN 4.3 g/dl (3.4-5.0); ALK PHOS 89 U/L (45-117); ANION GAP 9 (8-16); BILIRUBIN,TOTAL 0.3 mg/dL (0.2-1.0); BLOOD UREA NITROGEN 11 mg/dL (7-18); CO2 26 mmol/L (21-32); CREATININE 1.1 mg/dL (0.7-1.3); GLUCOSE,RANDOM 81 mg/dL (74-106); SGOT/AST 35 U/L (15-37); SGPT/ALT 69 U/L (12-78); TOT PROT 7.9 g/dl (6.4-8.2)
[2018-02-15] MEDS: MAG HYDROX/AL HYDROX/SIMETH 30 ML UNIT-DOSE CUP PO PRN (16:56)
[2018-02-15] MEDS: ARIPiprazole 10 MG TABLET PO SCH (21:41)
[2018-02-15] MEDS: TOPIRAMATE 25 MG TABLET (FP) PO SCH (21:41)
[2018-02-15] MEDS: diphenhydrAMINE HCL 50 MG CAPSULE PO SCH (21:41)
[2018-02-15] MEDS: THIAMINE HCL 100 MG TABLET (FP) PO SCH (21:41)
[2018-02-16] MEDS: PRENATAL VITAMINS W/ FOLIC ACID TABLET (FP) PO SCH (10:49)
[2018-02-16] MEDS: NICOTINE 21 MG/24 HOURS TOPICAL PATCH TD SCH (10:50)
[2018-02-16] MEDS: FLUoxetine HCL 10 MG TABLET PO SCH (10:50)
[2018-02-16] MEDS: hydrOXYzine PAMOATE 50 MG CAPSULE (FP) PO PRN ×2 (10:51→17:23)
--- NOTE | 2018-02-16 17:18 | PN ---
[facility] Progress Note Note: Patient complains of indigestion and heartburn. States mylanta does not help. Vital Signs Temperature 98.2 F 02/16/18 07:14 Pulse Rate 96 H 02/16/18 07:14 Respiratory Rate 18 02/16/18 07:14 Blood Pressure 94/72 02/16/18 07:14 O2 Sat by Pulse Oximetry (%) Laboratory Tests 02/15/18 02/15/18 02/15/18 08:30 08:30 08:30 WBC 4.0 D RBC 4.99 Hgb 15.1 D Hct 46.6 MCV 93.5 MCH 30.4 MCHC 32.5 RDW 14.0 Plt Count 213 D MPV 8.7 Sickle Cell Screen Negative Sodium 140 Potassium 4.1 Chloride 105 Carbon Dioxide 26 Anion Gap 9 BUN 11 D Creatinine 1.1 D Creat Clearance w eGFR > 60 Random Glucose 81 Calcium 10.0 D Total Bilirubin 0.3 D AST 35 ALT 69 D Alkaline Phosphatase 89 Total Protein 7.9 Albumin 4.3 Urine Color Urine Appearance Urine pH Ur Specific [place] Urine Protein Urine Glucose (UA) Urine Ketones Urine Blood Urine Nitrite Urine Bilirubin Urine Urobilinogen Ur Leukocyte Esterase Hep C Ab Diagnostic Liver Fibrosis Interp HIV 1&2 Antibody Screen HIV P24 Antigen 02/15/18 02/15/18 02/15/18 08:30 10:00 10:15 WBC RBC Hgb Hct MCV MCH MCHC RDW Plt Count MPV Sickle Cell Screen Sodium Potassium Chloride Carbon Dioxide Anion Gap BUN Creatinine Creat Clearance w eGFR Random Glucose Calcium Total Bilirubin AST ALT Alkaline Phosphatase Total Protein Albumin Urine Color Yellow Urine Appearance Clear Urine pH 7.0 D Ur Specific [place] 1.019 Urine Protein Negative Urine Glucose (UA) Negative Urine Ketones Negative Urine Blood Negative Urine Nitrite Negative Urine Bilirubin Negative Urine Urobilinogen Negative Ur Leukocyte Esterase Negative Hep C Ab Diagnostic <0.1 Liver Fibrosis Interp HIV 1&2 Antibody Screen Negative HIV P24 Antigen Negative Obj: alert and oriented x 3. In NAD. Abd soft, BS+, NT. Skin warm and dry. A/P: will order pepto bismul prn increase oral fluids continue to monitor
[2018-02-16] MEDS: ARIPiprazole 10 MG TABLET PO SCH (21:45)
[2018-02-16] MEDS: THIAMINE HCL 100 MG TABLET (FP) PO SCH (21:45)
[2018-02-16] MEDS: TOPIRAMATE 25 MG TABLET (FP) PO SCH (21:45)
[2018-02-16] MEDS: diphenhydrAMINE HCL 50 MG CAPSULE PO SCH (21:45)
[2018-02-16] MEDS: BISMUTH SUBSALICYLATE 524 MG/30 ML UD PO PRN (21:46)
[2018-02-17] MEDS: ACAMPROSATE CALCIUM 333 MG TABLET.DR PO SCH ×3 (06:35→22:06)
[2018-02-17] MEDS: NICOTINE 21 MG/24 HOURS TOPICAL PATCH TD SCH (10:38)
[2018-02-17] MEDS: PRENATAL VITAMINS W/ FOLIC ACID TABLET (FP) PO SCH (10:38)
[2018-02-17] MEDS: MINERAL OIL/PETROLAT/WATER TOPICAL CREAM 113 GM JAR TP SCH (10:41)
[2018-02-17] MEDS: FLUoxetine HCL 10 MG TABLET PO SCH (10:42)
[2018-02-17] MEDS: FLUoxetine HCL 10 MG CAPSULE (FP) PO SCH (10:49)
[2018-02-17] MEDS: ARIPiprazole 10 MG TABLET PO SCH (22:06)
[2018-02-17] MEDS: diphenhydrAMINE HCL 50 MG CAPSULE PO SCH (22:06)
[2018-02-17] MEDS: THIAMINE HCL 100 MG TABLET (FP) PO SCH (22:06)
[2018-02-17] MEDS: TOPIRAMATE 25 MG TABLET (FP) PO SCH (22:06)
[2018-02-17] MEDS: IBUPROFEN 400 MG TABLET (FP) PO PRN (22:09)
[2018-02-17] MEDS: hydrOXYzine PAMOATE 50 MG CAPSULE (FP) PO PRN (22:09)
[2018-02-18] MEDS: ACAMPROSATE CALCIUM 333 MG TABLET.DR PO SCH ×3 (06:34→21:42)
[2018-02-18] MEDS: FLUoxetine HCL 10 MG CAPSULE (FP) PO SCH (09:49)
[2018-02-18] MEDS: PRENATAL VITAMINS W/ FOLIC ACID TABLET (FP) PO SCH (09:49)
[2018-02-18] MEDS: hydrOXYzine PAMOATE 50 MG CAPSULE (FP) PO PRN (09:50)
[2018-02-18] MEDS: MINERAL OIL/PETROLAT/WATER TOPICAL CREAM 113 GM JAR TP SCH (09:52)
[2018-02-18] MEDS: NICOTINE 21 MG/24 HOURS TOPICAL PATCH TD SCH (09:52)
[2018-02-18] MEDS: TOPIRAMATE 25 MG TABLET (FP) PO SCH (21:42)
[2018-02-18] MEDS: IBUPROFEN 400 MG TABLET (FP) PO PRN (21:43)
[2018-02-18] MEDS: diphenhydrAMINE HCL 50 MG CAPSULE PO SCH (21:43)
[2018-02-18] MEDS: ARIPiprazole 10 MG TABLET PO SCH (21:43)
[2018-02-18] MEDS: THIAMINE HCL 100 MG TABLET (FP) PO SCH (21:43)
[2018-02-19] MEDS: hydrOXYzine PAMOATE 50 MG CAPSULE (FP) PO PRN ×2 (03:44→10:42)
[2018-02-19] MEDS: ACAMPROSATE CALCIUM 333 MG TABLET.DR PO SCH ×3 (06:32→21:54)
[2018-02-19] MEDS: PRENATAL VITAMINS W/ FOLIC ACID TABLET (FP) PO SCH (10:40)
[2018-02-19] MEDS: NICOTINE 21 MG/24 HOURS TOPICAL PATCH TD SCH (10:40)
[2018-02-19] MEDS: FLUoxetine HCL 10 MG CAPSULE (FP) PO SCH (10:40)
[2018-02-19] MEDS: MINERAL OIL/PETROLAT/WATER TOPICAL CREAM 113 GM JAR TP SCH (10:43)
[2018-02-19] MEDS: IBUPROFEN 400 MG TABLET (FP) PO PRN (12:55)
[2018-02-19] MEDS: BISMUTH SUBSALICYLATE 524 MG/30 ML UD PO PRN (20:41)
[2018-02-19] MEDS: ARIPiprazole 10 MG TABLET PO SCH (21:54)
[2018-02-19] MEDS: TOPIRAMATE 25 MG TABLET (FP) PO SCH (21:55)
[2018-02-19] MEDS: diphenhydrAMINE HCL 50 MG CAPSULE PO SCH (21:55)
[2018-02-19] MEDS: THIAMINE HCL 100 MG TABLET (FP) PO SCH (21:55)
[2018-02-19] MEDS: MELATONIN 5 MG TABLETS PO PRN (21:56)
[2018-02-20] MEDS: ACAMPROSATE CALCIUM 333 MG TABLET.DR PO SCH ×3 (06:37→21:35)
[2018-02-20] MEDS: hydrOXYzine PAMOATE 50 MG CAPSULE (FP) PO PRN (10:23)
[2018-02-20] MEDS: FLUoxetine HCL 10 MG CAPSULE (FP) PO SCH (10:23)
[2018-02-20] MEDS: IBUPROFEN 400 MG TABLET (FP) PO PRN (10:23)
[2018-02-20] MEDS: PRENATAL VITAMINS W/ FOLIC ACID TABLET (FP) PO SCH (10:23)
[2018-02-20] MEDS: NICOTINE 21 MG/24 HOURS TOPICAL PATCH TD SCH (10:23)
[2018-02-20] MEDS: MINERAL OIL/PETROLAT/WATER TOPICAL CREAM 113 GM JAR TP SCH (10:25)
[2018-02-20] MEDS: TOPIRAMATE 25 MG TABLET (FP) PO SCH (21:35)
[2018-02-20] MEDS: diphenhydrAMINE HCL 50 MG CAPSULE PO SCH (21:36)
[2018-02-20] MEDS: ARIPiprazole 10 MG TABLET PO SCH (21:36)
[2018-02-20] MEDS: THIAMINE HCL 100 MG TABLET (FP) PO SCH (21:36)
[2018-02-20] MEDS: MELATONIN 5 MG TABLETS PO PRN (21:37)
[2018-02-21] MEDS: BISMUTH SUBSALICYLATE 524 MG/30 ML UD PO PRN (00:12)
[2018-02-21] MEDS: ACAMPROSATE CALCIUM 333 MG TABLET.DR PO SCH ×3 (06:02→21:37)
[2018-02-21] MEDS: hydrOXYzine PAMOATE 50 MG CAPSULE (FP) PO PRN ×2 (06:03→11:03)
[2018-02-21] MEDS: NICOTINE 21 MG/24 HOURS TOPICAL PATCH TD SCH (11:03)
[2018-02-21] MEDS: MINERAL OIL/PETROLAT/WATER TOPICAL CREAM 113 GM JAR TP SCH (11:03)
[2018-02-21] MEDS: PRENATAL VITAMINS W/ FOLIC ACID TABLET (FP) PO SCH (11:03)
[2018-02-21] MEDS: FLUoxetine HCL 10 MG CAPSULE (FP) PO SCH (11:03)
[2018-02-21] MEDS: THIAMINE HCL 100 MG TABLET (FP) PO SCH (21:37)
[2018-02-21] MEDS: TOPIRAMATE 25 MG TABLET (FP) PO SCH (21:37)
[2018-02-21] MEDS: ARIPiprazole 10 MG TABLET PO SCH (21:37)
[2018-02-21] MEDS: diphenhydrAMINE HCL 50 MG CAPSULE PO SCH (21:37)
[2018-02-21] MEDS: MELATONIN 5 MG TABLETS PO PRN (21:38)
[2018-02-22] MEDS: ACAMPROSATE CALCIUM 333 MG TABLET.DR PO SCH ×3 (06:39→21:28)
[2018-02-22] MEDS: hydrOXYzine PAMOATE 50 MG CAPSULE (FP) PO PRN ×2 (06:41→14:21)
[2018-02-22] MEDS: FLUoxetine HCL 10 MG CAPSULE (FP) PO SCH (10:15)
[2018-02-22] MEDS: PRENATAL VITAMINS W/ FOLIC ACID TABLET (FP) PO SCH (10:15)
[2018-02-22] MEDS: MINERAL OIL/PETROLAT/WATER TOPICAL CREAM 113 GM JAR TP SCH (10:16)
[2018-02-22] MEDS: NICOTINE 21 MG/24 HOURS TOPICAL PATCH TD SCH (10:16)
--- NOTE | 2018-02-22 15:52 | PN ---
[facility] Progress Note Note: Patient c/o of low back pain. Vital Signs Temperature 97.9 F 02/22/18 07:03 Pulse Rate 77 02/22/18 07:03 Respiratory Rate 18 02/22/18 07:03 Blood Pressure 111/72 02/22/18 07:03 O2 Sat by Pulse Oximetry (%) Laboratory Last Values WBC 4.0 K/mm3 (4.0-10.0) D 02/15/18 08:30 RBC 4.99 M/mm3 (4.00-5.60) 02/15/18 08:30 Hgb 15.1 GM/dL (11.7-16.9) D 02/15/18 08:30 Hct 46.6 % (35.4-49) 02/15/18 08:30 MCV 93.5 fl (80-96) 02/15/18 08:30 MCH 30.4 pg (25.7-33.7) 02/15/18 08:30 MCHC 32.5 g/dl (32.0-35.9) 02/15/18 08:30 RDW 14.0 % (11.9-15.9) 02/15/18 08:30 Plt Count 213 K/MM3 (134-434) D 02/15/18 08:30 MPV 8.7 fl (7.5-11.1) 02/15/18 08:30 Sickle Cell Screen Negative (NEGATIVE) 02/15/18 08:30 Sodium 140 mmol/L (136-145) 02/15/18 08:30 Potassium 4.1 mmol/L (3.5-5.1) 02/15/18 08:30 Chloride 105 mmol/L (98-107) 02/15/18 08:30 Carbon Dioxide 26 mmol/L (21-32) 02/15/18 08:30 Anion Gap 9 (8-16) 02/15/18 08:30 BUN 11 mg/dL (7-18) D 02/15/18 08:30 Creatinine 1.1 mg/dL (0.7-1.3) D 02/15/18 08:30 Creat Clearance w eGFR > 60 (>60) 02/15/18 08:30 Random Glucose 81 mg/dL (74-106) 02/15/18 08:30 Calcium 10.0 mg/dL (8.5-10.1) D 02/15/18 08:30 Total Bilirubin 0.3 mg/dL (0.2-1.0) D 02/15/18 08:30 AST 35 U/L (15-37) 02/15/18 08:30 ALT 69 U/L (12-78) D 02/15/18 08:30 Alkaline Phosphatase 89 U/L (45-117) 02/15/18 08:30 Total Protein 7.9 g/dl (6.4-8.2) 02/15/18 08:30 Albumin 4.3 g/dl (3.4-5.0) 02/15/18 08:30 Urine Color Yellow 02/15/18 10:15 Urine Appearance Clear 02/15/18 10:15 Urine pH 7.0 (5.0-8.0) D 02/15/18 10:15 Ur Specific [place] 1.019 (1.001-1.035) 02/15/18 10:15 Urine Protein Negative (NEGATIVE) 02/15/18 10:15 Urine Glucose (UA) Negative (NEGATIVE) 02/15/18 10:15 Urine Ketones Negative (NEGATIVE) 02/15/18 10:15 Urine Blood Negative (NEGATIVE) 02/15/18 10:15 Urine Nitrite Negative (NEGATIVE) 02/15/18 10:15 Urine Bilirubin Negative (<2.0 mg/dL) 02/15/18 10:15 Urine Urobilinogen Negative mg/dL (0.2-1.0) 02/15/18 10:15 Ur Leukocyte Esterase Negative (NEGATIVE) 02/15/18 10:15 RPR Titer Nonreactive (NONREACTIVE) 02/15/18 08:30 Hep C Ab Diagnostic <0.1 s/co ratio (0.0-0.9) 02/15/18 08:30 Liver Fibrosis Interp (.) 02/15/18 08:30 HIV 1&2 Antibody Screen Negative 02/15/18 10:00 HIV P24 Antigen Negative 02/15/18 10:00 Plan flexeril 5mg TID PRN Ibuprofen PRN Increase fluids Continue to ambulate Continue to monitor
[2018-02-22] MEDS: CYCLOBENZAPRINE HCL 5 MG TABLET PO SCH ×2 (16:38→21:28)
[2018-02-22] MEDS: THIAMINE HCL 100 MG TABLET (FP) PO SCH (21:28)
[2018-02-22] MEDS: TOPIRAMATE 25 MG TABLET (FP) PO SCH (21:28)
[2018-02-22] MEDS: diphenhydrAMINE HCL 50 MG CAPSULE PO SCH (21:28)
[2018-02-22] MEDS: ARIPiprazole 10 MG TABLET PO SCH (21:28)
[2018-02-22] MEDS: MAG HYDROX/AL HYDROX/SIMETH 30 ML UNIT-DOSE CUP PO PRN (22:44)
[2018-02-23] MEDS: CYCLOBENZAPRINE HCL 5 MG TABLET PO SCH ×3 (06:35→21:50)
[2018-02-23] MEDS: ACAMPROSATE CALCIUM 333 MG TABLET.DR PO SCH ×3 (06:35→21:49)
[2018-02-23] MEDS: hydrOXYzine PAMOATE 50 MG CAPSULE (FP) PO PRN ×2 (06:36→14:08)
[2018-02-23] MEDS: FLUoxetine HCL 10 MG CAPSULE (FP) PO SCH (10:22)
[2018-02-23] MEDS: PRENATAL VITAMINS W/ FOLIC ACID TABLET (FP) PO SCH (10:22)
[2018-02-23] MEDS: NICOTINE 21 MG/24 HOURS TOPICAL PATCH TD SCH (10:23)
[2018-02-23] MEDS: MINERAL OIL/PETROLAT/WATER TOPICAL CREAM 113 GM JAR TP SCH (10:24)
[2018-02-23] MEDS: BISMUTH SUBSALICYLATE 524 MG/30 ML UD PO PRN (12:40)
[2018-02-23] MEDS: ARIPiprazole 10 MG TABLET PO SCH (21:49)
[2018-02-23] MEDS: diphenhydrAMINE HCL 50 MG CAPSULE PO SCH (21:49)
[2018-02-23] MEDS: THIAMINE HCL 100 MG TABLET (FP) PO SCH (21:50)
[2018-02-23] MEDS: TOPIRAMATE 25 MG TABLET (FP) PO SCH (21:50)
[2018-02-23] MEDS: IBUPROFEN 400 MG TABLET (FP) PO PRN (21:52)
[2018-02-24] MEDS: ACAMPROSATE CALCIUM 333 MG TABLET.DR PO SCH ×3 (06:06→21:56)
[2018-02-24] MEDS: hydrOXYzine PAMOATE 50 MG CAPSULE (FP) PO PRN ×2 (06:06→14:13)
[2018-02-24] MEDS: CYCLOBENZAPRINE HCL 5 MG TABLET PO SCH ×3 (06:06→21:56)
[2018-02-24] MEDS: FLUoxetine HCL 10 MG CAPSULE (FP) PO SCH (10:21)
[2018-02-24] MEDS: NICOTINE 21 MG/24 HOURS TOPICAL PATCH TD SCH (10:21)
[2018-02-24] MEDS: PRENATAL VITAMINS W/ FOLIC ACID TABLET (FP) PO SCH (10:21)
[2018-02-24] MEDS: MINERAL OIL/PETROLAT/WATER TOPICAL CREAM 113 GM JAR TP SCH (10:21)
[2018-02-24] MEDS: THIAMINE HCL 100 MG TABLET (FP) PO SCH (21:56)
[2018-02-24] MEDS: diphenhydrAMINE HCL 50 MG CAPSULE PO SCH (21:56)
[2018-02-24] MEDS: ARIPiprazole 10 MG TABLET PO SCH (21:56)
[2018-02-24] MEDS: TOPIRAMATE 25 MG TABLET (FP) PO SCH (21:56)
[2018-02-24] MEDS: IBUPROFEN 400 MG TABLET (FP) PO PRN (21:57)
[2018-02-25] MEDS: CYCLOBENZAPRINE HCL 5 MG TABLET PO SCH ×3 (06:25→21:49)
[2018-02-25] MEDS: ACAMPROSATE CALCIUM 333 MG TABLET.DR PO SCH ×3 (06:25→21:48)
[2018-02-25] MEDS: hydrOXYzine PAMOATE 50 MG CAPSULE (FP) PO PRN ×2 (06:26→14:13)
[2018-02-25] MEDS: PRENATAL VITAMINS W/ FOLIC ACID TABLET (FP) PO SCH (10:53)
[2018-02-25] MEDS: NICOTINE 21 MG/24 HOURS TOPICAL PATCH TD SCH (10:53)
[2018-02-25] MEDS: FLUoxetine HCL 10 MG CAPSULE (FP) PO SCH (10:53)
[2018-02-25] MEDS: MINERAL OIL/PETROLAT/WATER TOPICAL CREAM 113 GM JAR TP SCH (10:54)
--- NOTE | 2018-02-25 15:46 | PN ---
Psychiatric Progress Note Vital Signs: Vital Signs Period Temp Pulse Resp BP Sys/[place] Pulse Ox Last 24 Hr 98.9 F 76 16-18 132/85 Date of Session: 02/25/18 Chief Complaint:: progress update HPI: Patient is addressing alcohol, cocaine,PCP, nicotine dependence comorbid Bipolar I disorder. ROS: WNL Current Medications: Active Medications Generic Name Dose Route Start Last Admin Trade Name Freq PRN Reason Stop Dose Admin Acamprosate 666 mg 02/17/18 06:00 02/25/18 14:13 Campral - PO 666 mg TID IMMANUEL Administration Acetaminophen 650 mg 02/14/18 17:35 Tylenol - PO Q4H PRN FEVER Al Hydroxide/Mg Hydroxide 30 ml 02/14/18 17:35 02/22/18 22:44 Mylanta Oral Suspension - PO 30 ml Q6H PRN Administration DYSPEPSIA Aripiprazole 20 mg 02/14/18 22:45 02/24/18 21:56 Abilify PO 20 mg HS IMMANUEL Administration Bismuth Subsalicylate 524 mg 02/16/18 17:14 02/23/18 12:40 Pepto-Bismol - PO 524 mg DAILY PRN Administration DIARRHEA Cyclobenzaprine HCl 5 mg 02/22/18 16:00 02/25/18 14:13 Cyclobenzaprine Hcl PO 5 mg TID IMMANUEL Administration Diphenhydramine HCl 50 mg 02/14/18 22:45 02/24/18 21:56 Benadryl - PO 50 mg HS IMMANUEL Administration Eucalyptus/Menthol/Phenol/Sorbitol 1 each 02/14/18 17:35 Cepastat Lozenge - MM Q4H PRN SORE THROAT Fluoxetine HCl 10 mg 02/17/18 10:45 02/25/18 10:53 Prozac - PO 10 mg DAILY IMMANUEL Administration Guaifenesin 10 ml 02/14/18 17:35 Robitussin Dm - PO Q6H PRN COUGH Hydroxyzine Pamoate 50 mg 02/14/18 17:35 02/25/18 14:13 Vistaril - PO 50 mg Q4H PRN Administration AGITATION Ibuprofen 400 mg 02/14/18 17:35 02/24/18 21:57 Motrin - PO 400 mg Q6H PRN Administration Pain level 4-6 Loperamide HCl 4 mg 02/14/18 17:35 Imodium - PO Q6H PRN DIARRHEA Magnesium Citrate 300 ml 02/14/18 17:35 Citroma - PO Q48H PRN CONSTIPATION Magnesium Hydroxide 30 ml 02/14/18 17:35 Milk Of Magnesia - PO DAILY PRN CONSTIPATION Melatonin 5 mg 02/14/18 22:00 02/21/18 21:38 Melatonin PO 5 mg HS PRN Administration INSOMNIA Multi-Ingredient Lotion 1 applic 02/17/18 10:00 02/25/18 10:54 Eucerin (Small Jar) - TP Not Given DAILY IMMANUEL Nicotine 21 mg 02/15/18 10:00 02/25/18 10:53 Nicoderm Patch - TD 21 mg DAILY IMMANUEL Administration Nicotine Polacrilex 2 mg 02/14/18 17:35 Nicorette Gum - BC Q2H PRN NICOTINE REPLACEMENT RX Multivit/Folic Acid/Iron 1 tab 02/15/18 10:00 02/25/18 10:53 Vitamins (Sjr) - PO 1 tab DAILY IMMANUEL Administration Pseudoephedrine/Triprolidine 1 combo 02/14/18 17:35 Actifed - PO TID PRN NASAL CONGESTION Thiamine HCl 100 mg 02/14/18 22:00 02/24/18 21:56 Vitamin B1 - PO 100 mg HS IMMANUEL Administration Topiramate 50 mg 02/14/18 22:45 02/24/18 21:56 Topamax - PO 50 mg HS IMMANUEL Administration Medication(s) Change(s): increase Benadryl 100 mg po hs. Current Side Effect: No Lab tests ordered: No Lab tests reviewed: Yes Provider note:: Patient was seen today, reports has been feeling well, medicatins tolerated well, no side-effects reported, patient reports that his mood is brighter, but c/o insomnia, states was on 100 mg po hs of Benadryl and thinks was effective, will increase Benadryl, continue to monior progress. Total face to face time:: 15 Mental Status Exam - Mental Status Exam Alert and Oriented to: Time, Place, Person Cognitive Function: Good Patient Appearance: Well Groomed Mood: Hopeful Affect: Appropriate, Mood Congruent Patient Behavior: Appropriate, Cooperative Speech Pattern: Clear, Appropriate Voice Loudness: Normal Thought Process: Intact, Goal Oriented Thought Disorder: Not Present Hallucinations: Denies Suicidal Ideation: Denies Homicidal Ideation: Denies Insight/Judgement: Fair Sleep: Poorly, Difficulty falling asleep Appetite: Fair Muscle strength/Tone: Normal Gait/Station: Normal Psychiatric Treatment Plan - Problem List (1) Cocaine dependence Current Visit: Yes (2) PCP dependence Current Visit: Yes (3) Bipolar II disorder, mild, depressed, with mood-congruent psychotic features , in full remission Current Visit: Yes (4) Alcohol dependence Current Visit: Yes Qualifiers: Substance use status: unspecified alcohol-induced disorder Qualified Code(s ): F10.29 - Alcohol dependence with unspecified alcohol-induced disorder (5) Nicotine dependence Current Visit: Yes Qualifiers: Nicotine product type: cigarettes Substance use status: uncomplicated Qualified Code(s): F17.210 - Nicotine dependence, cigarettes, uncomplicated (6) Cannabis dependence Current Visit: No
[2018-02-25] MEDS: diphenhydrAMINE HCL 50 MG CAPSULE PO SCH (21:48)
[2018-02-25] MEDS: ARIPiprazole 10 MG TABLET PO SCH (21:48)
[2018-02-25] MEDS: MAG HYDROX/AL HYDROX/SIMETH 30 ML UNIT-DOSE CUP PO PRN (21:49)
[2018-02-25] MEDS: THIAMINE HCL 100 MG TABLET (FP) PO SCH (21:49)
[2018-02-25] MEDS: TOPIRAMATE 25 MG TABLET (FP) PO SCH (21:49)
[2018-02-26] MEDS: CYCLOBENZAPRINE HCL 5 MG TABLET PO SCH ×3 (06:28→21:39)
[2018-02-26] MEDS: ACAMPROSATE CALCIUM 333 MG TABLET.DR PO SCH ×3 (06:28→21:39)
[2018-02-26] MEDS: hydrOXYzine PAMOATE 50 MG CAPSULE (FP) PO PRN ×2 (06:30→14:01)
[2018-02-26] MEDS: PRENATAL VITAMINS W/ FOLIC ACID TABLET (FP) PO SCH (10:16)
[2018-02-26] MEDS: FLUoxetine HCL 10 MG CAPSULE (FP) PO SCH (10:16)
[2018-02-26] MEDS: MINERAL OIL/PETROLAT/WATER TOPICAL CREAM 113 GM JAR TP SCH (10:17)
[2018-02-26] MEDS: NICOTINE 21 MG/24 HOURS TOPICAL PATCH TD SCH (10:17)
[2018-02-26] MEDS: ARIPiprazole 10 MG TABLET PO SCH (21:39)
[2018-02-26] MEDS: THIAMINE HCL 100 MG TABLET (FP) PO SCH (21:39)
[2018-02-26] MEDS: diphenhydrAMINE HCL 50 MG CAPSULE PO SCH (21:39)
[2018-02-26] MEDS: TOPIRAMATE 25 MG TABLET (FP) PO SCH (21:39)
[2018-02-27] MEDS: CYCLOBENZAPRINE HCL 5 MG TABLET PO SCH ×3 (06:09→21:38)
[2018-02-27] MEDS: ACAMPROSATE CALCIUM 333 MG TABLET.DR PO SCH ×3 (06:09→21:40)
[2018-02-27] MEDS: hydrOXYzine PAMOATE 50 MG CAPSULE (FP) PO PRN ×2 (06:10→14:00)
[2018-02-27] MEDS: IBUPROFEN 400 MG TABLET (FP) PO PRN ×2 (09:30→21:38)
[2018-02-27] MEDS: MINERAL OIL/PETROLAT/WATER TOPICAL CREAM 113 GM JAR TP SCH (09:30)
[2018-02-27] MEDS: PRENATAL VITAMINS W/ FOLIC ACID TABLET (FP) PO SCH (09:30)
[2018-02-27] MEDS: FLUoxetine HCL 10 MG CAPSULE (FP) PO SCH (09:30)
[2018-02-27] MEDS: NICOTINE 21 MG/24 HOURS TOPICAL PATCH TD SCH (09:31)
[2018-02-27] MEDS: diphenhydrAMINE HCL 50 MG CAPSULE PO SCH (21:39)
[2018-02-27] MEDS: TOPIRAMATE 25 MG TABLET (FP) PO SCH (21:39)
[2018-02-27] MEDS: THIAMINE HCL 100 MG TABLET (FP) PO SCH (21:40)
[2018-02-27] MEDS: ARIPiprazole 10 MG TABLET PO SCH (21:40)
[2018-02-27] MEDS: MAG HYDROX/AL HYDROX/SIMETH 30 ML UNIT-DOSE CUP PO PRN (21:51)
[2018-02-28] MEDS: ACAMPROSATE CALCIUM 333 MG TABLET.DR PO SCH ×3 (06:00→21:55)
[2018-02-28] MEDS: CYCLOBENZAPRINE HCL 5 MG TABLET PO SCH ×3 (06:00→21:55)
[2018-02-28] MEDS: hydrOXYzine PAMOATE 50 MG CAPSULE (FP) PO PRN ×2 (06:02→14:05)
[2018-02-28] MEDS: FLUoxetine HCL 10 MG CAPSULE (FP) PO SCH (10:58)
[2018-02-28] MEDS: MINERAL OIL/PETROLAT/WATER TOPICAL CREAM 113 GM JAR TP SCH (10:58)
[2018-02-28] MEDS: NICOTINE 21 MG/24 HOURS TOPICAL PATCH TD SCH (10:58)
[2018-02-28] MEDS: PRENATAL VITAMINS W/ FOLIC ACID TABLET (FP) PO SCH (10:58)
[2018-02-28] MEDS: ACETAMINOPHEN 325 MG TABLET (FP) PO PRN (11:00)
[2018-02-28] MEDS: THIAMINE HCL 100 MG TABLET (FP) PO SCH (21:54)
[2018-02-28] MEDS: ARIPiprazole 10 MG TABLET PO SCH (21:55)
[2018-02-28] MEDS: TOPIRAMATE 25 MG TABLET (FP) PO SCH (21:55)
[2018-02-28] MEDS: diphenhydrAMINE HCL 50 MG CAPSULE PO SCH (21:55)
[2018-03-01] MEDS: MELATONIN 5 MG TABLETS PO PRN (00:28)
[2018-03-01] MEDS: hydrOXYzine PAMOATE 50 MG CAPSULE (FP) PO PRN ×2 (00:28→06:33)
[2018-03-01] MEDS: CYCLOBENZAPRINE HCL 5 MG TABLET PO SCH (06:33)
[2018-03-01] MEDS: ACAMPROSATE CALCIUM 333 MG TABLET.DR PO SCH (06:33)
[2018-03-01] MEDS: ACETAMINOPHEN 325 MG TABLET (FP) PO PRN (06:35)
[2018-03-01 06:50] VITALS: BP 113/78; PULSE 79; TEMP 97.8
--- NOTE | 2018-03-01 08:09 | PN ---
Psychiatric Progress Note Vital Signs: Vital Signs Period Temp Pulse Resp BP Sys/[place] Pulse Ox Last 24 Hr 97.8 F 79 18-18 113/78 Date of Session: 03/01/18 Chief Complaint:: discharge visit HPI: Patient has addressed alcohol, cocaine,PCP, nicotine dependence comorbid Bipolar I disorder ROS: anemia, right kidney cyst, right arm fx,GERD,decreased vision in right eye and varicose veins in lower extremities. Current Medications: Active Medications Generic Name Dose Route Start Last Admin Trade Name Freq PRN Reason Stop Dose Admin Acamprosate 666 mg 02/17/18 06:00 03/01/18 06:33 Campral - PO 666 mg TID IMMANUEL Administration Acetaminophen 650 mg 02/14/18 17:35 03/01/18 06:35 Tylenol - PO 650 mg Q4H PRN Administration FEVER Al Hydroxide/Mg Hydroxide 30 ml 02/14/18 17:35 02/27/18 21:51 Mylanta Oral Suspension - PO 30 ml Q6H PRN Administration DYSPEPSIA Aripiprazole 20 mg 02/14/18 22:45 02/28/18 21:55 Abilify PO 20 mg HS IMMANUEL Administration Bismuth Subsalicylate 524 mg 02/16/18 17:14 02/23/18 12:40 Pepto-Bismol - PO 524 mg DAILY PRN Administration DIARRHEA Cyclobenzaprine HCl 5 mg 02/22/18 16:00 03/01/18 06:33 Cyclobenzaprine Hcl PO 5 mg TID IMMANUEL Administration Diphenhydramine HCl 100 mg 02/25/18 22:00 02/28/18 21:55 Benadryl - PO 100 mg HS IMMANUEL Administration Eucalyptus/Menthol/Phenol/Sorbitol 1 each 02/14/18 17:35 Cepastat Lozenge - MM Q4H PRN SORE THROAT Fluoxetine HCl 10 mg 02/17/18 10:45 02/28/18 10:58 Prozac - PO 10 mg DAILY IMMANUEL Administration Guaifenesin 10 ml 02/14/18 17:35 Robitussin Dm - PO Q6H PRN COUGH Hydroxyzine Pamoate 50 mg 02/14/18 17:35 03/01/18 06:33 Vistaril - PO 50 mg Q4H PRN Administration AGITATION Ibuprofen 400 mg 02/14/18 17:35 04/15/18 21:38 Motrin - PO 400 mg Q6H PRN Administration Pain level 4-6 Loperamide HCl 4 mg 02/14/18 17:35 Imodium - PO Q6H PRN DIARRHEA Magnesium Citrate 300 ml 02/14/18 17:35 Citroma - PO Q48H PRN CONSTIPATION Magnesium Hydroxide 30 ml 02/14/18 17:35 Milk Of Magnesia - PO DAILY PRN CONSTIPATION Melatonin 5 mg 02/14/18 22:00 03/01/18 00:28 Melatonin PO 5 mg HS PRN Administration INSOMNIA Multi-Ingredient Lotion 1 applic 02/17/18 10:00 02/28/18 10:58 Eucerin (Small Jar) - TP Not Given DAILY IMMANUEL Nicotine 21 mg 02/15/18 10:00 02/28/18 10:58 Nicoderm Patch - TD 21 mg DAILY IMMANUEL Administration Nicotine Polacrilex 2 mg 02/14/18 17:35 Nicorette Gum - BC Q2H PRN NICOTINE REPLACEMENT RX Multivit/Folic Acid/Iron 1 tab 02/15/18 10:00 02/28/18 10:58 Vitamins (Sjr) - PO 1 tab DAILY IMMANUEL Administration Pseudoephedrine/Triprolidine 1 combo 02/14/18 17:35 Actifed - PO TID PRN NASAL CONGESTION Thiamine HCl 100 mg 02/14/18 22:00 02/28/18 21:54 Vitamin B1 - PO 100 mg HS IMMANUEL Administration Topiramate 50 mg 02/14/18 22:45 02/28/18 21:55 Topamax - PO 50 mg HS IMMANUEL Administration Current Side Effect: No Lab tests ordered: No Lab tests reviewed: Yes Provider note:: The patient has completed today his treatment and met his goals , will continue to address his issues at [facility] outpatient treatment program and will f/u with his psychiatrict. Patient focused on insights he gained through this treatment and accepted that he is powerless over his addiction and he needed this level of care to rebuild his life drug free. He is motivated to continue maintain abstinence. Patient reports feeling well with Abilify, Prozac , Topomax and Benadryl, medications well tolerated, scripts provided for 30 days, patient is stable for discharge today. Total face to face time:: 25 Mental Status Exam - Mental Status Exam Alert and Oriented to: Time, Place, Person Cognitive Function: Good Patient Appearance: Well Groomed Mood: Hopeful Affect: Appropriate, Mood Congruent Patient Behavior: Appropriate, Cooperative Speech Pattern: Clear, Appropriate Voice Loudness: Normal Thought Process: Intact, Goal Oriented Thought Disorder: Not Present Hallucinations: Denies Suicidal Ideation: Denies Homicidal Ideation: Denies Insight/Judgement: Fair Sleep: Fair Appetite: Fair Muscle strength/Tone: Normal Gait/Station: Normal Psychiatric Treatment Plan - Problem List (1) Cocaine dependence Current Visit: Yes (2) PCP dependence Current Visit: Yes (3) Bipolar II disorder, mild, depressed, with mood-congruent psychotic features , in full remission Current Visit: Yes (4) Alcohol dependence Current Visit: Yes Qualifiers: Substance use status: unspecified alcohol-induced disorder Qualified Code(s ): F10.29 - Alcohol dependence with unspecified alcohol-induced disorder (5) Nicotine dependence Current Visit: Yes Qualifiers: Nicotine product type: cigarettes Substance use status: uncomplicated Qualified Code(s): F17.210 - Nicotine dependence, cigarettes, uncomplicated (6) Cannabis dependence Current Visit: No
[2018-03-01] MEDS: FLUoxetine HCL 10 MG CAPSULE (FP) PO SCH (10:08)
[2018-03-01] MEDS: PRENATAL VITAMINS W/ FOLIC ACID TABLET (FP) PO SCH (10:08)
[2018-03-01] MEDS: MINERAL OIL/PETROLAT/WATER TOPICAL CREAM 113 GM JAR TP SCH (10:08)
[2018-03-01] MEDS: NICOTINE 21 MG/24 HOURS TOPICAL PATCH TD SCH (10:08)
== END 2018-03-01 11:15 | disposition home or self-care (01) | DRG 772 ==
LOC: YASAS 15:02 → Y5N 18:15
PROVIDERS: ADMIT Psychiatry & Neurology Psychiatry; ATTEND Psychiatry & Neurology Psychiatry
PROC: HZ42ZZZ Group Counseling for Substance Abuse Treatment, Cognitive-Behavioral (ICD-10-PCS; principal; 2018-02-14)
DX: F10.20 Alcohol dependence, uncomplicated (principal); F14.20 Cocaine dependence, uncomplicated; F12.20 Cannabis dependence, uncomplicated; F16.20 Hallucinogen dependence, uncomplicated; F17.210 Nicotine dependence, cigarettes, uncomplicated; F31.81 Bipolar II disorder; D64.9 Anemia, unspecified
CPT/HCPCS: 36415; 80053; 81003; 85027; 85660; 86593; 87389; 93005; 93010